=== PATIENT | female | born 1960 | race Caucasian/White ===

== ENCOUNTER → 2020-10-22 14:19 | Outpatient (CLI) | payer BC, SELFPAY ==
--- NOTE | 2020-10-22 14:27 | XR_ITS ---
PROCEDURE: XR SHOULDER LT MIN 2V CLINICAL INDICATION: right shoulder pain Left shoulder pain COMPARISON: No exams were available for comparison FINDINGS: No fracture or dislocation. No lytic or blastic change. There is normal mineralization. The joint spaces are well-preserved. No significant degenerative/arthritic changes. No erosive changes evident. Other findings:None. IMPRESSION: No acute findings. Dictated by: Praneeth Segal MD 10/22/2020 14:58 Praneeth Segal MD in [place] 10/22/2020 14:58
--- NOTE | 2020-10-22 14:27 | XR_ITS ---
PROCEDURE: XR WRIST RT MIN 3V CLINICAL INDICATION: right wrist fracture COMPARISON: CR WRIST 3V RT from 10/18/2020 FINDINGS: The cast has been removed. There is a healing distal radial fracture. There is mild dorsal displacement of the distal fracture fragment by nearly 4 mm with minimal dorsal angulation and minimal radial angulation of the distal fracture fragment. Fracture line is still barely visible The joint spaces are well-preserved. No significant degenerative/arthritic changes. No erosive changes evident. Other findings:None. IMPRESSION: Healing distal radial fracture as described above. Dictated by: Praneeth Segal MD 10/22/2020 14:59 Praneeth Segal MD in [place] 10/22/2020 14:59
--- NOTE | 2020-10-22 16:19 | MR_ITS ---
PROCEDURE INFORMATION: Exam: MR Left Upper Extremity Joint Without Contrast; Shoulder Exam date and time: 10/22/2020 4:19 PM Age: 60 years old Clinical indication: Pain; Shoulder; Left; Additional info: Left shoulder injury. Patient fell off horse x4days ago and landed on shoulder. Pain and bruising around entire shoulder. Weakness in arm. TECHNIQUE: Imaging protocol: MR of the Left upper extremity without contrast. Exam focused on the shoulder. COMPARISON: CR XR SHOULDER LT MIN 2V 10/22/2020 2:31 PM FINDINGS: Bones and cartilage: Type 2 acromion with curved undersurface and no subacromial enthesophyte. Marrow edema involving the neck the scapula. Degenerative marrow edema about the acromioclavicular joint. No other concerning marrow signal alterations. Joint spaces: Moderate hypertrophic degenerative changes of the acromioclavicular joint with mild mass effect on the underlying soft tissues. No glenohumeral joint effusion. Glenoid labrum: No labral tearing. Bursae: Small amount of fluid in the subacromial/subdeltoid bursa with synovitis is compatible with bursitis. Supraspinatus tendon: Unremarkable. No evidence of tear. Infraspinatus tendon: Unremarkable. No evidence of tear. Subscapularis tendon: Unremarkable. No evidence of tear. Teres minor tendon: Unremarkable. No evidence of tear. Tendon of biceps brachii: Intact long head of the biceps tendon which is normal in position. Glenohumeral ligaments: Unremarkable. Muscles: Normal muscles. Soft tissues: No rotator cuff tearing. IMPRESSION: 1. Subacromial/subdeltoid bursitis. 2. Moderate hypertrophic degenerative changes of the acromioclavicular joint with mild mass effect on the underlying soft tissues. 3. No rotator cuff for labral tearing.
[2020-10-22 16:53] LABS: Basophils # 0.1 K/mm3 (0-0.2); Basophils % 0.9 % (0.1-2.0); Eosinophils # 0.1 K/mm3 (0.0-0.4); Eosinophils % 2.3 % (0.1-12.0); Hematocrit 38.2 % (37.0-47.0); Hemoglobin 12.5 g/dL (12.2-16.2); Lymphocytes # 1.6 K/mm3 (0.7-4.5); Lymphocytes % 27.3 % (10-50); Mean Corpuscular HGB Conc 32.7 g/dL (31.8-35.4); Mean Corpuscular Hemoglobin 31.5 pg (27.0-31.2); Mean Corpuscular Volume 96.6 fl (81-99); Mean Platelet Volume 7.6 fl (7.4-10.4); Monocytes # 0.3 K/mm3 (0.1-1.0); Monocytes % 5.4 % (1.7-9.3); Neutrophils # 3.8 K/mm3 (1.8-7.8); Neutrophils % 64.1 % (37.0-80.0); Platelet Count 295 K/mm3 (142-424); Red Blood Count 3.96 M/mm3 (4.20-5.40); Red Cell Distribution Width 12.7 % (11.5-17.5)
[2020-10-22 17:18] LABS: Anion Gap 10.9 mEq/L (5-15); Blood Urea Nitrogen 15 mg/dl (7-17); Calcium 9.2 mg/dl (8.4-10.2); Carbon Dioxide 26 mmol/L (22.0-30.0); Chloride 101 mmol/L (98-107); Estimated Glomerular Filt Rate 102 ml/min (>60); GFR (African American) 123 ML/MIN (>60); Glucose 94 mg/dl (74-100); Potassium 4.9 mmoL/L (3.5-5.1); Sodium 133 mmol/L (136-145)
== END ==
PROVIDERS: PCP Family Medicine; Visit Provider Orthopaedic Surgery
DX: Z01.812 Encounter for preprocedural laboratory examination (principal); Z11.52 Encounter for screening for COVID-19; S62.101A Fracture of unspecified carpal bone, right wrist, initial encounter for closed fracture; S49.92XA Unspecified injury of left shoulder and upper arm, initial encounter
CPT/HCPCS: 36415; 73030; 73110; 73221; 80048; 85025; U0003

== ENCOUNTER → 2020-10-22 15:49 | Outpatient (CLI) | payer BC, SELFPAY | PROVIDERS: Visit Provider Orthopaedic Surgery | DX: M25.512 Pain in left shoulder (principal) | CPT/HCPCS: 36415; 80048; 85025; U0003 ==

== ENCOUNTER → 2020-10-24 09:34 | Day surgery (SDC) | payer BC, SELFPAY ==
[2020-10-23 11:14] VITALS: BMI 24.3
--- NOTE | 2020-10-24 09:45 | CT_ITS ---
PROCEDURE: CT HEAD/BRAIN WO CON CLINICAL INDICATION: head trauma Head injury with headache/pain, contusion, abrasion or hematoma COMPARISON: CT HDWO CT HEAD W/O CONTRAST from 12/24/2014 TECHNIQUE: Axial images obtained. All CT scans at the facility use one or more dose reduction, viz: automated exposure control, ma/kV adjustment per patient size (including targeted exams where dose is matched to indication, i.e. head), or iterative reconstruction technique. FINDINGS: No midline shift, mass effect, intracranial hemorrhage, hydrocephalus, or extra-axial fluid collection is evident. Skin clips are present in the left temporal area. There is a lucency through the right sphenoid bone posteriorly. The this however may be an anatomic variant or an old fracture as this was present on an older exam of 12/24/2014. No acute calvarial fracture is apparent. No sinus air-fluid level or mastoid effusion. IMPRESSION: No acute intracranial finding Dictated by: Praneeth Segal MD 10/24/2020 10:27 Praneeth Segal MD in [place] 10/24/2020 10:27
[2020-10-24 11:06] VITALS: BP 129/78; PULSE 73; RESP 18; TEMP 36.5; O2SAT 97
--- NOTE | 2020-10-24 13:14 | SUR.PREOP ---
1215: after nurse and anesthesia evaluation, the pt. sx is postponed until tomorrow pending PCP clearance due to recent concussion. Pt. is following up with her PCP (Dr. Thompson) today at 2 pm for a neurological evaluation per Hao Sanches's recommendation.
== END ==
PROVIDERS: PCP Family Medicine; Visit Provider Orthopaedic Surgery
DX: S62.101A Fracture of unspecified carpal bone, right wrist, initial encounter for closed fracture (principal); S09.90XA Unspecified injury of head, initial encounter; Z53.09 Procedure and treatment not carried out because of other contraindication
CPT/HCPCS: 70450

== ENCOUNTER 2020-10-25 09:10 | Day surgery (SDC) | payer BC, SELFPAY ==
[2020-10-25] VITALS (10 sets, daily range): BP systolic 117–158; BP diastolic 51–82; PULSE 58–90; RESP 12–20; TEMP 36.2–43; O2SAT 93–98; BMI 24.3
--- NOTE | 2020-10-25 12:04 | HMH.ANESCL ---
[facility] Anesthesia Checklist - Patient Identification Patient Identification: Arm Band - Structural Data Admitted From: Home Planned Operative Procedure/s: ORIF right distal radius Consent for Planned Operative Procedure(s) Verified: Yes Verified Documents: Surgical Consent, History and Physical - NPO Status Verified Time NPO: 00:00 - Additional verifications Anesthesia Reactions: No Hx Blood Transfusions: No Blood Transfusion Reaction: No - Airway Assessment C-Spine Mobility Assessed: Yes TMJ Mobility Assessed: Yes Dentition: Good Dentition - Neurological Assessment Level of Consciousness: Awake, Alert - Anesthesia Plan Anesthesia Plan: Verified ASA Class: II Anesthesia Type: General [facility] History Medical History: Denies:: Cancer, Diabetes Mellitus Type 1, Diabetes Mellitus Type 2, Internal Pacemaker, MRSA, Seizures *Have you ever received a pneumonia vaccine?: No *Have you received a flu vaccine this season?: No Other Medical History: Denies: Blood Transfusion Reaction Anesthesia experience/problems:: None Other Surgeries: Yes: Colonoscopy. No: Pacemaker Amputation: No Fractures: Yes - *Social History Last grade of school completed: Advanced degree Smoking Status: Never smoker Alcohol Intake: never Alcohol Intake Frequency:: holidays/special occasions only Substance Use Type: denies use *Occupational Status:: employed Housing: house Household Members: spouse *Travel in the last 8 weeks: None Family Hx:: No significant family history
--- NOTE | 2020-10-25 12:39 | XR_ITS ---
PROCEDURE: XR WRIST RT 2V CLINICAL INDICATION: ORIF Fracture COMPARISON: CR WRIST 3V RT from 10/18/2020 CR XR WRIST RT MIN 3V from 10/22/2020 FINDINGS: Fluoroscopy time: 41 seconds. 2 images are submitted demonstrating an anterior bone plate with good alignment of the radial fracture fragments. IMPRESSION: Status post fluoroscopy assisted ORIF with good alignment Dictated by: Praneeth Segal MD 10/25/2020 15:31 Praneeth Segal MD in [place] 10/25/2020 15:31
--- NOTE | 2020-10-25 13:19 | P.PN_ITS ---
[facility] Anesthesia Record Part I Intake, IV Amount: 1,500 Estimated blood loss (mL): 20 Urine output (mL): 0 Blood Products used (#): none Blood Pressure: 158/72 SaO2: 93 Pulse Rate: 89 Respiratory Rate: 12 Temperature: 97.6 F Patient is:: Drowsy, Stable Stable to PACU at:: 13:20
--- NOTE | 2020-10-25 13:40 | HMH.OPNOTE ---
Date of procedure: 10/25/20 Pre-op Diagnosis:: Closed, comminuted, displaced intra-articular fracture, right distal radius Post-op Diagnosis:: Same Procedure performed:: Open reduction and internal fixation right distal radius with volar locking plate. Surgeon:: French Bell MD Applied Research Director(s):: Aimee Humphrey CREPING MACHINE OPERATOR HELPER:: Rogerio Sanches, Other Anesthesia: regional (Supraclavicular nerve block), LMA Estimated blood loss (mL): 5 Clinical Note:: Patient is a 60-year-old right-hand dominant female who sustained a closed displaced intra-articular fracture of the right distal radius when she fell off a horse about a week ago. Evaluation including x-rays of the right wrist showed a closed, comminuted and displaced intra-articular fracture of the right distal radius. There was dorsal angulation and shortening of the radius with loss of radial inclination and volar tilt of the distal radius. The fracture was extending into the radiocarpal joint. Following a detailed discussion with the patient and her about the management options including both nonsurgical and surgical, patient elected to proceed with surgical remediation. Please refer to my office note for full details. Operative findings:: Displaced, comminuted and unstable intra-articular fracture of the right distal radius as noted on the preoperative x-rays. Bone quality is good. Operative note:: After appropriate workup, the patient was brought to the hospital for surgery. On the day of surgery, I met the patient in the preoperative area and again discussed the details of the procedure, risks and benefits, alternatives and the expected outcomes. The complications discussed include but are not limited to infection, bleeding, injury to nerves, tendons and blood vessels, incisional scar (cosmesis), DVT/PE, malunion, nonunion/delayed union, loss of position, re-fracture, wrist/finger stiffness, CRPS (complex regional pain syndrome- pain, sensory and temperature changes, swelling and stiffness), painful/prominent hardware, loss of fixation/hardware failure, incomplete relief of pain, incomplete return of function, posttraumatic arthritis and likely need for further surgery in future and also the risks of anesthesia including heart attack, stroke, and . I have discussed how there is a small but real possibility of loss of use of the arm, loss of the limb or loss of life itself. I have also explained how additional surgery may be required if there are any complications or the fracture fails to heal. We have also discussed the postoperative pain management, recovery and rehabilitation, immobilization required, the likely need for physical therapy, the possibility of stiffness, chronic pain and we've also discussed the option of nonsurgical treatment. Patient expressed a full understanding and wished to proceed with surgery as planned. The operative site/side was marked and initialed by me. Patient understood the risks, agreed to proceed with surgery and no guarantees or assurances were given or implied. Patient was brought to the operating room and placed supine on the table. The right upper extremity was placed over an arm table. All the bony prominences were well padded. A general anesthesia was administered by the behavior management specialist. Prior to that patient also received a supraclavicular nerve block in the pre-anesthetic area. A well-padded tourniquet cuff was applied over the right upper arm. The right upper extremity was prepped and draped in the usual sterile fashion. A preprocedure timeout was performed as per hospital protocol. Administration of prophylactic IV antibiotics (2 g of IV Ancef) was confirmed prior to starting the procedure. The skin incision was marked over the distal forearm anteriorly for the extended FCR volar approach to distal radius. Limb was exsanguinated with Esmarch bandage and tourniquet was inflated to 250 mmHg. Please see the nursing notes for the total tourniquet time. Skin inc
--- NOTE | 2020-10-28 11:13 | P.PN_ITS ---
[facility] Anesthesia Record Part II Discharge Time: 13:41 Destination: Surgical Day Care (OP Surgery) PACU nurse assessment reviewed?: Yes Patient Condition:: Good Anesthesia Complications:: None Swallowing reflex intact?: Yes Cyanosis?: No Blood Pressure: 120/75 Pulse Rate: 80 Temperature: 97.4 F Mental Status: Alert & Oriented Pain level:: 0 Nausea and/or vomitting:: None Intake, IV Amount: 0
[2020-10-28 11:15] VITALS: BP 120/75; PULSE 80; TEMP 36.3
== END 2020-10-25 14:36 | disposition home or self-care (01) ==
LOC: OR 09:10
PROVIDERS: PCP Family Medicine; Visit Provider Orthopaedic Surgery
PROC: (CPT 25608; principal; 2020-10-25 10:30)
DX: S52.571A Other intraarticular fracture of lower end of right radius, initial encounter for closed fracture (principal); S49.92XA Unspecified injury of left shoulder and upper arm, initial encounter; S09.90XA Unspecified injury of head, initial encounter; V80.010A Animal-rider injured by fall from or being thrown from horse in noncollision accident, initial encounter; Y92.73 Farm field as the place of occurrence of the external cause
CPT/HCPCS: 25608; 73100; 76000; 96374; C1713; C1769; C1776; J2405

== ENCOUNTER → 2020-11-05 15:10 | Outpatient (CLI) | payer BC, SELFPAY ==
--- NOTE | 2020-11-05 15:13 | XR_ITS ---
PROCEDURE: XR WRIST RT MIN 3V CLINICAL INDICATION: sp ORIF rt wrist, dos 10/25/20 COMPARISON: CR WRIST 3V RT from 10/18/2020 CR XR WRIST RT MIN 3V from 10/22/2020 CR XR WRIST RT 2V from 10/25/2020 FINDINGS: Status post ORIF distal radial fracture. Anterior bone plate is present with multiple cortical screws with good alignment of the fracture fragments with no significant displacement. Callus formation is developing dorsally. IMPRESSION: Good alignment status post ORIF distal radial fracture Dictated by: Praneeth Segal MD 11/05/2020 15:24 Praneeth Segal MD in [place] 11/05/2020 15:24
== END ==
PROVIDERS: PCP Family Medicine; Visit Provider Orthopaedic Surgery
DX: Z09 Encounter for follow-up examination after completed treatment for conditions other than malignant neoplasm (principal); M25.531 Pain in right wrist
CPT/HCPCS: 73110

== ENCOUNTER 2020-11-05 15:35 | Outpatient (RCR) | payer BC, SELFPAY | END 2020-11-05 16:24 | disposition home or self-care (01) | LOC: OT 15:35 | PROVIDERS: Visit Provider Orthopaedic Surgery | DX: S62.101A Fracture of unspecified carpal bone, right wrist, initial encounter for closed fracture (principal) | CPT/HCPCS: 97763 ==

== ENCOUNTER → 2020-11-20 13:11 | Outpatient (CLI) | payer BC, SELFPAY ==
--- NOTE | 2020-11-20 13:14 | XR_ITS ---
PROCEDURE: XR WRIST RT MIN 3V CLINICAL INDICATION: sp ORIF rt wrist, dos 10/25/20; out of brace COMPARISON: CR WRIST 3V RT from 10/18/2020 CR XR WRIST RT MIN 3V from 10/22/2020 CR XR WRIST RT 2V from 10/25/2020 CR XR WRIST RT MIN 3V from 11/05/2020 FINDINGS: Status post ORIF distal radius with volar bone plate and multiple cortical screws with good alignment. The scapho trapezium joint space is slightly widened. No other significant anomalies are evident. Other findings:None. IMPRESSION: Good alignment status post ORIF distal radial fracture with good alignment. Mild widening of the scapholunate space which could be seen with ligamentous injury. Dictated by: Praneeth Segal MD 11/20/2020 14:06 Praneeth Segal MD in [place] 11/20/2020 14:06
== END ==
PROVIDERS: PCP Family Medicine; Visit Provider Orthopaedic Surgery
DX: Z09 Encounter for follow-up examination after completed treatment for conditions other than malignant neoplasm (principal); S62.101D Fracture of unspecified carpal bone, right wrist, subsequent encounter for fracture with routine healing
CPT/HCPCS: 73110

== ENCOUNTER → 2021-01-01 14:01 | Outpatient (CLI) | payer BC, SELFPAY ==
--- NOTE | 2021-01-01 14:04 | XR_ITS ---
PROCEDURE: XR WRIST RT MIN 3V CLINICAL INDICATION: sp ORIF RT wrist, dos 10/25/20 Follow-up fracture COMPARISON: CR XR WRIST RT MIN 3V from 10/22/2020 CR XR WRIST RT 2V from 10/25/2020 CR XR WRIST RT MIN 3V from 11/05/2020 CR XR WRIST RT MIN 3V from 11/20/2020 FINDINGS: There is a volar bone plate present with good alignment status post ORIF distal radial fracture with no obvious orthopedic complications. The joint spaces are well-preserved. No significant degenerative/arthritic changes. No erosive changes evident. Other findings:None. IMPRESSION: Good alignment status post ORIF distal radial fracture Dictated by: Praneeth Segal MD 01/01/2021 14:57 Praneeth Segal MD in [place] 01/01/2021 14:57
== END ==
PROVIDERS: PCP Family Medicine; Visit Provider Orthopaedic Surgery
DX: S52.571D Other intraarticular fracture of lower end of right radius, subsequent encounter for closed fracture with routine healing (principal); Z09 Encounter for follow-up examination after completed treatment for conditions other than malignant neoplasm
CPT/HCPCS: 73110

== ENCOUNTER 2021-01-07 09:00 | Outpatient (RCR) | payer BC, SELFPAY ==
--- NOTE | 2020-12-10 09:03 | HMH.SLAPHASI ---
Speech & Language Evaluation Speech/Language Aphasia Evaluation Start: 12/10/20 08:55 Freq: once Status: Complete Protocol: Document 12/10/20 08:55 MARLON (Rec: 12/10/20 09:03 MARLON [id number]) Aphasia Assessment/Goals/Plan Assessment Date of Evaluation: 12/10/20 Evaluation Type Initial Certification Assessment/Problems Memory Does Patient Qualify for Service Yes Qualify/Failure Comment Patient struggles with memory and higher level cognitive skills. Plan Pt will be seen # times/week 2 for # weeks 8 Anticipate reaching STG in # weeks 4 Anticipate reaching LTG in # weeks 8 Pt/Guardian verbally ack understanding Yes of dx/prognosis/goals G -code Required No STG-Attending/Orientation/Memory Delayed Recall 90 Memory Recall 90 STG-Divergent Thinking Inductive Reasoning 90 Determine Cause When Given Results 90 Custodial Goals Increase cognitive skills to communicate Yes w/family & friends Speech & Language HPI History Present Illness Description of Patient Problem Memory Loss Pt/Caregiver Concerns Difficulty with word finding and memory loss Rehab Services Assessed Speech therapy Is this evaluation r/t stroke? No Aphasia Evaluations Communication Speech Intelligibility Within Functional Limits Auditory Comprehension Yes: Word Level Sentences Following Directions Paragraph Conversation AC Comment All areas are within functional limits Reading Comprehension Yes: Letter Naming Word Naming Sentences Paragraphs RC Comment All areas are within functional limits Verbal Expressive Language Yes: Automatic Speech Completing Sentences Repetition Abilities Word Level Naming Naming Actions/Objects Sentence Level Defining Words DELORIS Comment All areas are within functional limits Written Language Yes: Signature Copy Shapes Copy Words Check Writing
== END 2021-01-07 09:05 | disposition home or self-care (01) ==
LOC: ST 09:00
PROVIDERS: PCP Family Medicine; Visit Provider Family Medicine
DX: S06.0X1D Concussion with loss of consciousness of 30 minutes or less, subsequent encounter (principal); S02.91XD Unspecified fracture of skull, subsequent encounter for fracture with routine healing
CPT/HCPCS: 92523; 97129; 97130

== ENCOUNTER 2021-02-10 11:00 | Outpatient (RCR) | payer BC, SELFPAY ==
--- NOTE | 2020-11-26 12:55 | HMH.OTOPEV ---
OT Inpatient Evaluation Rehab OT Outpatient Eval Start: 11/26/20 12:43 Freq: Status: Active Protocol: Document 11/26/20 12:43 RMARSCHARLESTON (Rec: 11/26/20 12:55 [id number] Electronically Signed By Eddie Lee OT 11/26/20 12:43 Outpatient Therapy Subjective History Subjective History Pt is a 60 year old female who report to therapy for initial evaluation to right wrist and left shoulder. Pt was thrown off a horse on 10/18/20 resulting in a right wrist fx and left shoulder soft tissue injury. Pt also sustained other injuries such as scalp laceration and concussion. Pt is currently s/p R ORIF to wrist on 10/25/20. Pt demonstrates a decline in motion at both left shoulder and right wrist. Pt will continue to be seen in order to address all deficits. STG R wrist Flex: 50 degrees Ext: 50 degrees UD: 25 degrees L shoulder Flex: 160 degrees Abd: 160 degrees ER: 80 degrees IR: 75 degrees LTG R wrist: Flex: 60 degrees Ext: 60 degrees L shoulder ER: 90 degrees IR: 90 degrees Chief Complaint Pain,Stiff,Weakness Symptom Type Ache,Throb,Sharp,Dull,Numbness Symptoms Relieved By Rest/Positioning Symptoms Aggravated By Physical Activity,Lifting Prior Functional Limitations None Current Functional Limitations Reaching,Lifting,Housework, Dressing,Sleeping,Recreation Activity Symptom Description Intermittent,Activity Dependent Level of pain today (0-10) 3 Pain scale - at its best (0-10) 1 Pain scale - at its worst (0-10) 10 Shoulder/Elbow Eval Shoulder Objective Measurements Shoulder ROM Left Shoulder Abduction Active Range of 155 degrees Motion (degrees) Shoulder Flexion Active Range of Motion 155 degre
--- NOTE | 2020-12-24 10:49 | HMH.RHREAS ---
Rehab Reassessment Rehab OP Re-assessment Start: 12/24/20 10:34 Freq: Status: Active Protocol: Document 12/24/20 10:34 RMILEANAL (Rec: 12/24/20 10:49 RMARSHALL [id number]) Electronically Signed By Eddie Lee OT 12/24/20 10:34 Rehab Re-assessment Subjective Subjective I do feel the shoulder is doing better, but I am not happy with the wrist. Objective Objective Notes Pt continues to be seen twice a week in order to address all deficts at left shoulder and right wrist. Each session pt engages in L shoulder AROM, AAROM, and strengthening exercises. Pt receives PROM manual stretching to right wrist. Pt does engage in AROM /strengthening exercises at right wrist as well. Pt received modalities at both joints in order to improve pain/inflammation. Assessment Progress Assessment Progressing as Expected Assessment Notes Pt reports her she feels her left shoulder has improved sinc starting therapy. She explains she usually has soreness for ~24-48 hours after engaging in therapy due to an increase in strengthening exercises. Pt rates her worst pain at left shoulder as a 3/10. Pt's AROM and strength at left shoulder has improved (see below). As for her right wrist, she does show improvement as well. Her AROM has improved since starting therapy, but her biggest complaint is still having constant pain at right wrist at 5/10. Strength has improved, but is still limited . Pt does return to ortho on January 01 for a check up. Current L shoulder AROM Flex: 165 degrees Abd: 165 degrees ER: 75 degrees IR: 65 degrees Current R wr
--- NOTE | 2021-01-16 09:50 | HMH.RHREAS ---
Rehab Reassessment Rehab OP Re-assessment Start: 12/24/20 10:34 Freq: Status: Active Protocol: Document 01/16/21 09:00 RMARSHALL (Rec: 01/16/21 09:50 RMARSHALL [id number]) Electronically Signed By Eddie Lee OT 01/16/21 09:00 Rehab Re-assessment Subjective Subjective I do see some improvements again. Objective Objective Notes Pt continues to be seen twice a week in order to address all deficts at left shoulder and right wrist. Each session pt engages in L shoulder AROM, AAROM, and strengthening exercises. Pt receives PROM manual stretching to right wrist. Pt does engage in AROM /strengthening exercises at right wrist as well. Pt received modalities at both joints in order to improve pain/inflammation. Assessment Progress Assessment Progressing as Expected Assessment Notes Pt rates her worst pain at left shoulder as a 2/10. She does feel the shoulder has improved, but she continues to feel weak with overhead work. 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 Pt's AROM has stayed the same since last re-assessment, but endurance has improved. She still reports difficulty with lifting anything overhead. For example lifting a saddle onto her horse (overhead) causes pain with shoulder and is difficult to complete. This is a task she must complete daily. She also reports swinging a bail of hay to feed horses/ loading hay is hard due to strength and internal rotation. As far as house hold tasks, reaching into cabinets can be difficult . With the right wrist, she does show improvement with AROM, but strength is still
== END 2021-02-10 11:05 | disposition home or self-care (01) ==
LOC: OT 11:00
PROVIDERS: PCP Family Medicine; Visit Provider Orthopaedic Surgery
DX: S62.101A Fracture of unspecified carpal bone, right wrist, initial encounter for closed fracture (principal); S49.92XA Unspecified injury of left shoulder and upper arm, initial encounter
CPT/HCPCS: 97014; 97035; 97110; 97140; 97164; 97166; 97530; G0283

== ENCOUNTER → 2021-02-11 13:46 | Outpatient (CLI) | payer BC, SELFPAY | PROVIDERS: Visit Provider Orthopaedic Surgery | DX: Z01.812 Encounter for preprocedural laboratory examination (principal); Z20.822 Contact with and (suspected) exposure to COVID-19; G56.00 Carpal tunnel syndrome, unspecified upper limb | CPT/HCPCS: U0003 ==

== ENCOUNTER 2021-02-13 06:01 | Day surgery (SDC) | payer BC, SELFPAY ==
[2021-02-10 14:14] VITALS: BMI 21.9
[2021-02-13 06:15] VITALS: BP 133/73; PULSE 61; RESP 18; TEMP 36.4; O2SAT 98
--- NOTE | 2021-02-13 07:04 | P.PN_ITS ---
[facility] Anesthesia Checklist - Patient Identification Patient Identification: Arm Band - Structural Data Admitted From: Home Planned Operative Procedure/s: Carpal tunnel release Consent for Planned Operative Procedure(s) Verified: Yes - NPO Status Verified Time NPO: 00:00 - Additional verifications Anesthesia Reactions: No Hx Blood Transfusions: No Blood Transfusion Reaction: No - Airway Assessment C-Spine Mobility Assessed: Yes TMJ Mobility Assessed: Yes Dentition: Good Dentition - Neurological Assessment Level of Consciousness: Awake Hx Seizures: No Numbness or tingling in extremities: No - Anesthesia Plan Anesthesia Risk discussed: Yes Anesthesia Plan: Verified ASA Class: II Anesthesia Type: MAC w/Block [facility] History I have reviewed the patient's past medical history: Yes Medical History: Denies:: Cancer, Diabetes Mellitus Type 1, Diabetes Mellitus Type 2, Internal Pacemaker, MRSA, Seizures *Have you ever received a pneumonia vaccine?: No *Have you received a flu vaccine this season?: No Other Medical History: Denies: Blood Transfusion Reaction Anesthesia experience/problems:: None Other Surgeries: Yes: Colonoscopy. No: Pacemaker Amputation: No Fractures: Yes (R WRIST) - *Social History Last grade of school completed: High school graduate Smoking Status: Never smoker Alcohol Intake: never Alcohol Intake Frequency:: holidays/special occasions only Substance Use Type: denies use *Occupational Status:: employed Housing: house Household Members: spouse *Travel in the last 8 weeks: None Family Hx:: Cancer, Diabetes, Stroke
[2021-02-13 08:12] VITALS: TEMP 43
[2021-02-13 08:35] VITALS: BP 143/77; PULSE 70; RESP 18; TEMP 36.2; O2SAT 94
[2021-02-13 08:50] VITALS: BP 142/87; PULSE 60; RESP 18; O2SAT 95
[2021-02-13 09:05] VITALS: BP 143/81; PULSE 62; RESP 18; O2SAT 98
[2021-02-13 09:35] VITALS: BP 148/78; PULSE 66; RESP 18; O2SAT 98
--- NOTE | 2021-02-13 12:49 | HMH.OPNOTE ---
Date of procedure: 02/13/21 Pre-op Diagnosis:: Carpal tunnel syndrome, right wrist Post-op Diagnosis:: Same Procedure performed:: Open carpal tunnel release, right wrist Surgeon:: French Bell MD Bench Carpenter(s):: Aimee Humphrey MEMBER CERTIFICATION MANAGER:: Anaya White Anesthesia: regional (Supraclavicular nerve block) Estimated blood loss (mL): 2 Clinical Note:: Patient is a 60-year-old female with right carpal tunnel syndrome. EMG/NCV studies confirmed carpal tunnel syndrome on the right side. Patient is having significant and disabling symptoms and has failed to respond adequately to conservative management.. Therefore, carpal tunnel release surgery is necessary to relieve symptoms, preserve the remaining fibers of the median nerve, improve function and decrease the pain, paresthesias and weakness and to prevent permanent nerve damage. She had ORIF of right distal radius fracture over 3 months ago. Please refer to my office note for full details. Operative findings:: The intraoperative findings showed the median nerve to be very tightly compressed and hyperemic. The flexor retinaculum was noted to be thick and tight. There was mild synovitis in the carpal tunnel. There was no evidence of any space-occupying lesions within the carpal tunnel. Operative note:: On the day of the surgery the patient was met in the preoperative area. Patient was positively identified and the operative site was marked and initialed by me. A physical examination was performed and the chart was updated. I have again discussed the procedure, risks and benefits and alternatives with the patient. The complications discussed include but are not limited to- bleeding, injury to nerves, blood vessels and tendons, infection, wound dehiscence, incomplete relief/continued pain, persistent numbness, palmar hypersensitivity, pillar pain, DVT/PE, complex regional pain syndrome(CRPS), worsening of nerve damage, failure of the condition to improve, incomplete return of function, bowstringing of tendons, weakness of septic tank installer strength, recurrence, failure of the surgery to accomplish the desired goals, decreased use of the hand, loss of use of the arm, loss of the hand or arm, loss of life. Likely need for further surgery in the future has been discussed. I've indicated to the patient where the proposed incision would be made and also discussed the possibility of extending the incision if needed to accomplish an effective release. We have discussed how the goal of surgery is to protect the fibers which have remained healthy and hopefully reverse the symptoms of the fibers which are compromised but still recoverable. We have explained that, fibers that are permanently damaged will not recover. Patient asked appropriate questions and all have been answered by me. Patient wished to proceed with the surgery. Patient understood the risks, agreed to proceed with surgery and no guarantees or assurances were given or implied. The patient was brought to the operating room and placed supine on the operating table. The right upper extremity was placed over a side table. All the bony prominences were well-padded. The patient had a supraclavicular nerve block anesthesia and IV sedation administered by the painter decorator. A well-padded tourniquet cuff was placed over the upper arm. The right upper extremity was prepped and draped in the usual sterile fashion. A preprocedure timeout was performed as per hospital policy. Administration of prophylactic antibiotics was confirmed with the painter decorator. The skin incision was marked using the Covington's landmarks, just ulnar to the thenar crease. The limb was exsanguinated with the Esmarch bandage and tourniquet was inflated to 250 mmHg. Please see nursing records for the total tourniquet time. Covington's landmarks were utilized and a skin incision was made parallel and just ulnar to the thenar crease with a 15 blade. Blunt tissue dissection was carried through the subcutaneous tissue do
== END 2021-02-13 09:35 | disposition home or self-care (01) ==
PROVIDERS: PCP Family Medicine; Visit Provider Orthopaedic Surgery
PROC: (CPT 64721; principal; 2021-02-13 07:30)
DX: G56.01 Carpal tunnel syndrome, right upper limb (principal)
CPT/HCPCS: 64721; 96374

== ENCOUNTER 2021-04-30 10:00 | Outpatient (RCR) | payer BC, SELFPAY ==
--- NOTE | 2021-04-07 11:54 | HMH.OTOPEV ---
OT Inpatient Evaluation Rehab OT Outpatient Eval Start: 04/07/21 11:29 Freq: Status: Active Protocol: Document 04/07/21 11:29 RMARSHALL (Rec: 04/07/21 11:54 [id number] Electronically Signed By Eddie Ch OT 04/07/21 11:29 Outpatient Therapy Subjective History Subjective History Pt is a 61 year old female who reports to therapy for initial evaluation to right wrist. Pt is s/p R CTR on . Prior to this surgery she had a horse riding accident in Oct, 2020 resulting in an ORIF of right wrist. Since the initial accident and surgery, she started having carpal tunnel symtpoms. Pt is currently 7 weeks out from CTS. Pt does demonstrate with decreased AROM and strength of right wrist. Pt is right hand dominant and her gaming cage worker strength is declined. Pt does report her numbness in her index and middle finger has resolved. However, she reports she had deep soreness and numbness around her incision. Pt will continue to be seen twice a week in order to address all deficits. R hand STG gaming cage worker strength: 45 lbs R hand LTG gaming cage worker strength: 55 lbs Chief Complaint Pain,Stiff,Weakness,Decreased Senior Quality Analyst Strength Symptom Type Ache,Throb,Sharp,Dull Symptoms Relieved By Rest/Positioning Symptoms Aggravated By Physical Activity,Lifting Prior Functional Limitations None Current Functional Limitations Reaching,Lifting,Housework, Sleeping,Recreation Activity Symptom Description Constant but Variable Level of pain today (0-10) 4 Pain scale - at its best (0-10) 2 Pain scale - at its worst (0-10) 8 Wrist/Hand Eval Wrist Range of Motion Right Wrist Extension Active Range of Motion ( 60 degrees degrees) Wrist Flexion Active Range of Motion ( 50 degrees degrees) Wrist Radial Deviation Active Range of 25 degrees Motion (degrees) Wrist Ulnar Deviation Active Range of
== END 2021-04-30 10:05 | disposition home or self-care (01) ==
LOC: OT 10:00
PROVIDERS: PCP Family Medicine; Visit Provider Orthopaedic Surgery
DX: G56.01 Carpal tunnel syndrome, right upper limb (principal)
CPT/HCPCS: 97110; 97140; 97166

== ENCOUNTER 2021-05-23 08:50 | Emergency (ER) | payer BC, SELFPAY ==
[2021-05-23 08:51] VITALS: BP 133/64; PULSE 76; RESP 16; TEMP 36.8; O2SAT 97; BMI 23.5
--- NOTE | 2021-05-23 09:02 | XR_ITS ---
PROCEDURE: XR CHEST PORTABLE CLINICAL HISTORY: cough COMPARISON: CR CXR1 CHEST-PORTABLE from 02/02/[address] CHEST WO CONTRAST from 10/18/2020 FINDINGS: The cardiomediastinal silhouette and pulmonary vascularity are within normal limits. The lungs are clear without infiltrates, suspicious nodules, or pleural effusions. Old granulomatous disease. IMPRESSION: No change no acute finding Dictated by: Praneeth Segal MD 05/23/2021 09:43 Praneeth Segal MD in [place] 05/23/2021 09:43
[2021-05-23 09:44] LABS: Basophils # 0.1 K/mm3 (0-0.2); Basophils % 1.5 % (0.1-2.0); Eosinophils # 0.2 K/mm3 (0.0-0.4); Eosinophils % 3.7 % (0.1-12.0); Hemoglobin 13.1 g/dL (12.2-16.2); Lymphocytes # 1.4 K/mm3 (0.7-4.5); Mean Corpuscular HGB Conc 33.6 g/dL (31.8-35.4); Mean Corpuscular Hemoglobin 32.3 pg (27.0-31.2); Mean Corpuscular Volume 95.9 fl (81-99); Monocytes # 0.4 K/mm3 (0.1-1.0); Monocytes % 7.2 % (1.7-9.3); Neutrophils # 3.5 K/mm3 (1.8-7.8); Neutrophils % 62.5 % (37.0-80.0); Platelet Count 257 K/mm3 (142-424); Red Blood Count 4.07 M/mm3 (4.20-5.40); Red Cell Distribution Width 13.2 % (11.5-17.5); White Blood Count 5.6 K/mm3 (4.8-10.8)
[2021-05-23 09:52] LABS: Chloride 104 mmol/L (98-107); Potassium 3.9 mmoL/L (3.5-5.1); Sodium 137 mmol/L (136-145)
[2021-05-23 09:54] LABS: Alanine Aminotransferase 26 U/L (12-78); Aspartate Amino Transferase 30 U/L (14-36); Blood Urea Nitrogen 16 mg/dl (7-17); Creatinine Clearance Estimated 63 mL/min (50-200); Estimated Glomerular Filt Rate 102 ml/min (>60); GFR (African American) 123 ML/MIN (>60)
[2021-05-23 09:55] LABS: Albumin/Globulin Ratio 1.4 (1.1-1.8); Alkaline Phosphatase 51 U/L (38-126); Anion Gap 11.9 mEq/L (5-15); Bilirubin,Total 0.2 mg/dl (0.2-1.3); Calcium 8.8 mg/dl (8.4-10.2); Carbon Dioxide 25 mmol/L (22.0-30.0); Globulin 2.8 g/dL (1.3-3.2); Glucose 100 mg/dl (74-100); Total Protein,Serum 6.8 g/dl (6.3-8.2)
--- NOTE | 2021-05-23 10:03 | HMH.EDGENADL ---
ED Disposition Clinical Impression: Tension headache Sinusitis Qualifiers: Sinusitis location: frontal Chronicity: acute Recurrence: non-recurrent Qualified Code(s): J01.10 - Acute frontal sinusitis, unspecified URI (upper respiratory infection) Qualifiers: URI type: unspecified viral URI Qualified Code(s): J06.9 - Acute upper respiratory infection, unspecified Disposition: Home, Self-Care Condition on Discharge: Good Instructions: Sinus Headache Referrals: Mayte Robbins MD [Primary Care Provider] - - Critical Care Critical Care Time: No Attestation: On 05/23/21, the high probability of a clinically significant, sudden or life threatening deterioration of the following system(s) required my full and direct attention, intervention and personal management. The time I documented below is in addition to time spent performing reported procedures but includes the following listed in this critical care notation. Medical Decision Making - Medical Records Medical records reviewed: Yes: I reviewed the patient's medical records. - [place] Inquiry Pt receiving controlled substance: No Vital Signs: 05/23/21 08:51 Temperature 98.2 F Temperature Source Oral Pulse Rate [Right Radial] 76 Respiratory Rate 16 Blood Pressure [Right Arm] 133/64 Blood Pressure Mean [Right Arm] 87 Blood Pressure Source [Right Arm] Automatic Cuff Blood Pressure Position [Right Arm] Sitting 02 Sat by Pulse Oximetry 97 Oxygen Delivery Method Room Air - Lab Data Lab Results 05/23/21 09:20: SARS-CoV-2 (PCR) Not detected, Influenza A Untype (PCR) Not detected, Influenza Type B (PCR) Not detected 05/23/21 09:30: WBC 5.6, RBC 4.07 L, Hgb 13.1, Hct 39.0, MCV 95.9, MCH 32.3 H, MCHC 33.6, RDW 13.2, Plt Count 257, MPV 8.0, Neut % (Auto) 62.5, Lymph % (Auto) 25.0, [place] % (Auto) 7.2, Eos % (Auto) 3.7, Baso % (Auto) 1.5, Neut # (Auto) 3.5, Lymph # (Auto) 1.4, [place] # (Auto) 0.4, Eos # (Auto) 0.2, Baso # (Auto) 0.1 05/23/21 09:30: Sodium 137, Potassium 3.9, Chloride 104, Carbon Dioxide 25, Anion Gap 11.9, BUN 16, Creatinine 0.60, Estimated Creat Clear 63, Estimated GFR 102, Est GFR ( Amer) 123, Glucose 100, Calcium 8.8, Total Bilirubin 0.2, AST 30, ALT 26, Alkaline Phosphatase 51, Total Protein 6.8, Albumin 4.0, Globulin 2.8, Albumin/Globulin Ratio 1.4 Result diagrams: 05/23/21 09:30 05/23/21 09:30 Orders (Tests/Meds): ED MEDICATIONS Discontinued Medications Generic Name Dose Route Start Last Admin Trade Name Freq PRN Reason Stop Dose Admin Diphenhydramine HCl 25 mg 05/23/21 09:02 05/23/21 09:34 Diphenhydramine 50mg/Ml Vial IV 05/23/21 09:03 25 mg ONCE ONE Administration Sodium Chloride 1,000 mls @ 999 mls/hr 05/23/21 09:15 05/23/21 09:35 Sod Chlor 0.9% 1000ml Bag IV 05/23/21 10:15 999 mls/hr .Q1H1M ZANDRA Administration Ketorolac Tromethamine 30 mg 05/23/21 09:02 05/23/21 09:35 Ketorolac 30mg/Ml Vial IV 05/23/21 09:03 30 mg ONCE ONE Administration Ondansetron HCl 4 mg 05/23/21 09:23 05/23/21 09:35 Ondansetron 4mg/2ml Vial IV 05/23/21 09:24 4 mg ONCE ONE Administration - Radiology Data #1 Image(s): Chest Image Reviewed: Yes I reviewed the patient's radiology results, Yes I reviewed the patient's radiology image, Yes I have reviewed radiologist's interpretation Preliminary Findings: Normal/NAD, No Infiltrates Seen - Reevaluation(s) Time: 10:19 Reevaluation #1: On reevaluation, the patient is feeling much better. Headache is improved. Laboratory studies were unremarkable. Chest x-ray clear. Patient's findings consistent with upper respiratory infection. She will continue her antibiotic for the sinusitis as well as finishing her steroids and antivirals for her shingles infection. Patient needs to follow-up with PCP in 48 hours. Given strict return precautions. Verbalized understanding. Medical Decision Narrative: 61-year-old female presenting with flulike symptoms.
[2021-05-23 10:12] LABS: Coronavirus 19, PCR Not Detected (NotDetected); Influenza A, PCR Not Detected (NotDetected); Influenza B, PCR Not Detected (NotDetected)
[2021-05-23 11:32] VITALS: BP 135/62; PULSE 70; RESP 16; TEMP 36.8; O2SAT 95
== END 2021-05-23 11:35 | disposition home or self-care (01) ==
PROVIDERS: Emergency Provider Emergency Medicine; PCP Family Medicine
DX: J01.10 Acute frontal sinusitis, unspecified (principal); J06.9 Acute upper respiratory infection, unspecified; G44.209 Tension-type headache, unspecified, not intractable
CPT/HCPCS: 71045; 80053; 85025; 96365; 96375; 99283; C9803; J2405; U0003; U0005

== ENCOUNTER → 2021-09-11 11:12 | Outpatient (CLI) | payer BC, SELFPAY ==
[2021-09-11 11:37] LABS: Basophils # 0.1 K/mm3 (0-0.2); Basophils % 1.1 % (0.1-2.0); Eosinophils # 0.1 K/mm3 (0.0-0.4); Eosinophils % 2.3 % (0.1-12.0); Hematocrit 42.8 % (37.0-47.0); Hemoglobin 13.8 g/dL (12.2-16.2); Lymphocytes # 1.8 K/mm3 (0.7-4.5); Lymphocytes % 35.2 % (10-50); Mean Corpuscular HGB Conc 32.3 g/dL (31.8-35.4); Mean Corpuscular Hemoglobin 32.4 pg (27.0-31.2); Mean Corpuscular Volume 100.4 fl (81-99); Mean Platelet Volume 7.7 fl (7.4-10.4); Monocytes # 0.3 K/mm3 (0.1-1.0); Neutrophils # 2.8 K/mm3 (1.8-7.8); Neutrophils % 55.4 % (37.0-80.0); Platelet Count 297 K/mm3 (142-424); Red Blood Count 4.26 M/mm3 (4.20-5.40); Red Cell Distribution Width 12.8 % (11.5-17.5)
[2021-09-11 16:37] LABS: Chloride 101 mmol/L (98-107); Potassium 4.8 mmoL/L (3.5-5.1); Sodium 136 mmol/L (136-145)
[2021-09-11 16:38] LABS: Anion Gap 10.8 mEq/L (5-15); Bilirubin,Total 0.5 mg/dl (0.2-1.3); Blood Urea Nitrogen 20 mg/dl (7-17); Carbon Dioxide 29 mmol/L (22.0-30.0); Estimated Glomerular Filt Rate 102 ml/min (>60); GFR (African American) 123 ML/MIN (>60); Glucose 91 mg/dl (74-100)
[2021-09-11 16:45] LABS: Alanine Aminotransferase 23 U/L (12-78); Albumin Level 4.5 g/dl (3.5-5.0); Albumin/Globulin Ratio 1.8 (1.1-1.8); Aspartate Amino Transferase 29 U/L (14-36); Cholesterol 197 mg/dl (140-200); Direct LDL Cholesterol 98.23 mg/dL (100-129); Globulin 2.5 g/dL (1.3-3.2); Triglycerides 59 mg/dl (30-150); VLDL Cholesterol 12 mg/dL (0-40)
[2021-09-11 16:51] LABS: Alkaline Phosphatase 34 U/L (38-126); Chol/HDL Ratio 2.7 (1-3.5); HDL Cholesterol 74 mg/dl (40-60)
== END ==
PROVIDERS: Orthopaedic Surgery; PCP Family Medicine; Visit Provider Family Medicine
DX: G56.01 Carpal tunnel syndrome, right upper limb (principal); E78.00 Pure hypercholesterolemia, unspecified
CPT/HCPCS: 36415; 80053; 80061; 85025

== ENCOUNTER → 2021-09-29 09:01 | Outpatient (CLI) | payer BC, SELFPAY ==
--- NOTE | 2021-09-29 09:13 | XR_ITS ---
FINAL REPORT TECHNIQUE: Bone densitometry calculations of the lumbar spine and left hip were obtained. CLINICAL HISTORY: . osteopenia FINDINGS: Using L1-4, the bone mineral density of the spine is 0.804 g/cm2, corresponding to T-score of -2.2. Using the left hip, the bone mineral density of the femoral neck is 0.583 g/cm2, corresponding to a T-score of -2.4. Using the right hip, the bone mineral density of the femoral neck is 0.561 g/cm2, corresponding to a T-score of -2.6. NOTE: T-score: Standard deviation compared with peak bone mass of young adult mean. *Following the recommendations of the International Society of Bone Densitometry, classification of hip BMD is based on the lower of two T-scores; total hip or femoral neck. IMPRESSION: Osteoporosis: Lowest T-score is at or below -2.5. This patient's T-score meets the World Health Organization criteria for osteoporosis. Reviewed, Interpreted and Dictated by Lawrence Llanes MD Transcribed by Robyn Jacob Authenticated by Lawrence Llanes MD on 09/29/2021 11:05:21 AM [facility]
== END ==
PROVIDERS: PCP Family Medicine; Visit Provider Family Medicine
DX: M85.89 Other specified disorders of bone density and structure, multiple sites (principal)
CPT/HCPCS: 77080

== ENCOUNTER 2023-08-11 11:52 | Outpatient (CLI) | payer OTHER, SELFPAY ==
--- NOTE | 2023-08-11 12:05 | ECG_ITS ---
APPROVED REPORT Exam: Resting ECG HR:65 bpm ECG Measurements Heart Rate 65 AXES SD 195 P 82 QRSd 116 QRS 85 QT 408 T 78 QTc 419 Conclusion SINUS RHYTHM INDETERMINATE AXIS INCOMPLETE RIGHT BUNDLE BRANCH BLOCK [90+ ms QRS DURATION, TERMINAL R IN V1/V2, 40+ ms S IN I/aVL/V4/V5/V6] BORDERLINE ECG UNCONFIRMED REPORT Electronically signed by : Royce Patel MD 08/11/2023 20:34:49
[2023-08-11 12:46] LABS: Troponin I < 0.01 ng/ml (0.00-0.034)
== END 2023-08-11 23:59 ==
PROVIDERS: PCP Family Medicine; Visit Provider Family Medicine
DX: R07.9 Chest pain, unspecified (principal)
CPT/HCPCS: 36415; 84484; 93005

== ENCOUNTER 2024-05-24 15:15 | Outpatient (CLI) | payer OTHER, SELFPAY ==
--- NOTE | 2024-05-24 15:18 | XR_ITS ---
FINAL REPORT TECHNIQUE: Bone densitometry calculations of the lumbar spine and left hip were obtained. CLINICAL HISTORY: SCREENING FINDINGS: Using L1-4, the bone mineral density of the spine is 0.813 g/cm2, corresponding to T-score of -2.1. Using the left hip, the bone mineral density of the femoral neck is 0.575 g/cm2, corresponding to a T-score of -2.5. Using the right hip, the bone mineral density of the femoral neck is 0.551 g/cm?, corresponding to a T-score of -2.7. NOTE: T-score: Standard deviation compared with peak bone mass of young adult mean. *Following the recommendations of the International Society of Bone Densitometry, classification of hip BMD is based on the lower of two T-scores; total hip or femoral neck. IMPRESSION: Osteoporosis: Lowest T-score is at or below -2.5. This patient's T-score meets the World Health Organization criteria for osteoporosis. Reviewed, Interpreted and Dictated by Teto Holt III, MD Transcribed by Ludmila Chairez Authenticated and [facility]
== END 2024-05-24 23:59 | disposition home or self-care (01) ==
LOC: RAD 15:16
PROVIDERS: PCP Family Medicine; Visit Provider Family Medicine
DX: M81.0 Age-related osteoporosis without current pathological fracture (principal)
CPT/HCPCS: 77080

== ENCOUNTER 2024-08-21 12:10 | Outpatient (CLI) | payer OTHER, SELFPAY ==
--- NOTE | 2024-08-21 12:16 | XR_ITS ---
FINAL REPORT CLINICAL HISTORY: PAIN LT KNEE FINDINGS: LEFT KNEE 3 views of the left knee were obtained. There is no acute fracture or dislocation. Visualized joint spaces are normally aligned. Soft tissues are unremarkable. IMPRESSION: No acute bony abnormality. Reviewed, Interpreted and Dictated by Mayte Browne MD Transcribed by Kassandra Blanca Authenticated and [facility]
== END 2024-08-21 23:59 | disposition home or self-care (01) ==
LOC: RAD 12:11
PROVIDERS: PCP Family Medicine; Visit Provider Family Medicine
DX: M25.562 Pain in left knee (principal)
CPT/HCPCS: 73562

== ENCOUNTER 2024-09-04 12:59 | Outpatient (RCR) | payer OTHER, SELFPAY ==
--- NOTE | 2024-09-04 14:10 | HMH.PTOPEV ---
PT Outpatient Evaluation Rehab PT Outpatient Evaluation Start: 09/04/24 13:06 Freq: Status: Active Protocol: Document 09/04/24 13:42 DANIEL (Rec: 09/04/24 14:10 DANIEL [id number]) E-signed By Harpreet Madsen, PT Outpatient Therapy Subjective History Subjective History Pt is a 64 yof who presents to [facility] outpatient PT with complaints of acute L knee pain that began approximately two months ago. The pt reports that she cannot recall a particular event that caused her knee pain to begin but reports that she is very active [place] her [place], so she may have tweaked something and may not have realized it. The pt reports that her pain is not constant but when she tweaks it, it can become fairly intense. She reports that her symptoms worsen when she has her foot planted and she goes to turn. She reports that her knee has been popping and clicking in the last couple of weeks. She also reports occasional swelling just at the anterio-medio portion of the knee. Pt reports that she is very active and rides horses. 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 PMH: hx of back surgery, osteoporosis. New diagnosis of cancer in past 12 No months? Chief Complaint Pain,Clicks,Swelling Symptom Type Ache,Sharp Symptoms Relieved By OTC Meds Prior Functional Limitations None Current Functional Limitations Lifting,Housework,Standing, Sitting,Squatting,Walking, Stairs Symptom Description Intermittent,Activity Dependent Level of pain today (0-10) 1 Pain scale - at its best (0-10) 0 Pain scale - at its worst (0-10) 8 Hip/Knee Eval Gait Observation General Gait Pattern Observation Antalgic Gait,Decrease Weight Bear (L),Decrease Stride Lngth (R) Assistive Device Assistive Devices None / NA Palpation Tenderness left Knee Palpation Finding Tenderness Knee Palpation Overall Comment 3/4 to Medial Joint line MMT Hip Flexion Strength Grade 4 Good Hip Abduction Strength Grade 4- Good- Hip Adduction Strength Grade 4- Good- Hip Extension Strength Grade 3 Fair Knee Extension Strength Grade 4- Good- Knee Flexion Strength Grade 4 Good ROM Knee ROM Reason Not Measured Within Functional Limits Special Tests Knee Anterior Drawer Test Negative Left,Negative Right Knee Anterior Levar Test Negative Left,Negative Right Knee Valgus Stress Test Negative Right,Positive Left Knee Varus Stress Test Negative Left,Negative Right Knee Frank Test Negative Right,Positive Left Lower Extremity Functional Index Activities Today, do you or would you have any difficulty at all with: a.Any of your usual work, housework or A little bit of difficulty school activities b. Your usual hobbies, recreational or Moderate difficulty sporting activities c. Getting into or out of the bath No difficulty d. Walking between rooms No difficulty e. Putting on your shoes or socks No difficulty f. Squatting Quite a bit of difficulty g. Lifting an object, like a bag of Moderate difficulty groceries from the floor h. Performing light activities around A little bit of difficulty your home i. Performing heavy activities around A little bit of difficulty your home j. Getting into or out of a car No difficulty k. Walking 2 blocks A little bit of difficulty l. Walking a mile Moderate difficulty m. Going up or down 10 stairs (about 1 A little bit of difficulty flight of stairs) n. Standing for 1 hour No difficulty o. Sitting for 1 hour No difficulty p. Running on even ground Moderate difficulty q. Running on uneven ground Quite a bit of difficulty r. Making sharp turns while running fast Quite a bit of difficulty s. Hopping Quite a bit of difficulty t. Rolling over in bed A little bit of difficulty LEFI Score Lower Extremity Functional Index Score 54 Miscellaneous Dx PT Eval Objective Objective Pain with forced flexion and extension Thessaly's: + Outpatient Therapy Assessment Impairments Problems/Impairmments Palpation Tenderness,Impaired Strength,Impaired Gait Pattern ,Impaired Walking,Impaired Stair Climbing,Impaired Squatting,Impaired Recreational Activities, Subjective C/O Pain Prognosis Rehab Potential Good Comment w HEP Compliance Clinical Impression Consistent with Diagnosis Yes Consistent with Meniscal Derangement Additional details: Pt presents with signs and symptoms consistent with meniscal derangement of her L knee. Pt presents with pain with forced knee flexion and extension, hx of popping and clicking, positive Frank's Test, Positive Thessaly's Test and medial joint line tenderness. These signs and symptoms suggest medial meniscal involvement. The pt would benefit from skilled PT to address her impairments, promote a return to her PLOF and to prevent further injury. Short Term Goals Number of Weeks 4 Decreased Palpation Tenderness Yes: 1-2/4 to TTP Assessment Above Increase Strength Yes: 4/5 to L hip/knee Improve LEFI Score Yes: to 63 Decrease Subjective C/O Pain Yes: 5/10 pain with above assessment Patient to be Ind w/ HEP Yes Design Specialist Goals Number of Weeks 8 Decreased Palpation Tenderness Yes: 0-06/24 to TTP Assessment Above Increase Strength Yes: 10/23 to L knee/hip Improve Gait Pattern without Assistive Yes: Normalized gait on uneven Device surface Improve Ability to Climb Stairs Yes: Flight of stairs with reciprocal pattern and no increase in pain Improve Ability to Squat Yes: Proper squat mechanics and no increase in pain Return to Recreational Activities Yes: Ride/mount horses without increasing pain Improve Tolerance to Work Activities Yes: Normal daily work duties with no increase in pain Improve LEFI Score Yes: to 72 Decrease Subjective C/O Pain Yes: 2-08/28 with above assessment Patient to be Ind w/ Advanced HEP Yes Outpatient Therapy Plan of Care Treatment Plan May Include Therapeutic Exercise Including Home Yes Exercise Program Manual Therapy Techniques Yes Neuromuscular Re-education Yes Therapeutic Activities to Return to Yes Previous Functional/Work Level Gait Training Yes ADL/Self Care Education Yes Thermal Modalities Yes Electrical Stimulation Yes Manual Lymphatic Drainage Yes Eval/Re-Eval Yes Frequency Times per week 1-2 Duration Number of Weeks 8 Addendums This patient is a candidate for social No or vocational rehab? Patient/Guardian verbally acknowledges Yes understanding of treatment program and consents to further treatment? Patient/Guardian verbally acknowledges Yes understanding of diagnosis, prognosis and goals for treatment? Eval Complexity PT Charges 86243 - Low Complexity Shoulder/Elbow Eval Shoulder Objective Measurements Elbow Objective Measurements PHYSICIAN CERTIFICATION: I certify the specified therapy services for Fiordaliza Maier are required, authorized, and reviewed every 30 days.
== END 2024-09-04 23:59 | disposition home or self-care (01) ==
LOC: PT 12:59
PROVIDERS: Visit Provider Family Medicine
DX: M25.562 Pain in left knee (principal)
CPT/HCPCS: 97163